=== PATIENT | female | born 1990 | race Caucasian/White ===

== ENCOUNTER 2019-02-15 07:10 | Inpatient (IN) ==
[2019-02-15] MEDS ORDERED: OXYTOCIN 30 UNITS/500 ML BAG IV PRN (09:16)
[2019-02-15] MEDS ORDERED: LACTATED RINGER'S 1,000 ML IV PRN (09:16)
[2019-02-15 09:35] LABS: Hemoglobin 11.1 g/dL (12.0-16.0); Mean Corpuscular Volume 91.9 fL (80-100); Mean Platelet Volume 11.1 fL (7.4-10.4); Platelet Count 154 K/uL (130-400); RDW Coefficient of Variation 13.3 % (11.5-14.5); RDW Standard Deviation 44.4 fL (36.4-46.3); Red Blood Count 3.59 M/uL (4.2-5.4); White Blood Count 12.03 K/uL (4.8-10.8)
[2019-02-15] MEDS ORDERED: miSOPROStol 25 MCG TAB PV SCH (09:45)
[2019-02-15 09:47] LABS: Mean Corpuscular Hgb Conc 33.6 g/dL (32-36)
--- NOTE | 2019-02-15 09:49 | Obstetrical Progress Note ---
Date of Service February 15, 2019 Subjective Admit Note 28 F P1011 at 40.3 weeks admitted for induction of labor for post dates . Her course has been unremarkable. GBS is negative. FHT Cat 1 with no contractions. Cervix 1/50/-3/vertex/posterior/firm/intact. EFW 7 lbs. Cytotec 25 mcg placed for cervical ripening to start induction. I discussed this with patient and spouse. Will monitor and then allow to ambulate. Results & Data Vital Signs (Past 12 Hours) Vital Signs Temp Pulse Resp BP 02/15/19 07:34 36.8 C 18 02/15/19 07:26 75 143/82 H
--- NOTE | 2019-02-15 19:44 | Obstetrical Progress Note ---
Date of Service February 15, 2019 Physical Exam Genitourinary: Manual OB Exam: + cervical dilation 4 cm, + cervical effacement 80%, + station high and + amniotic fluid clear OB Exam Monitor Tracing: + external FHT monitor used, + external uterine monitor used and + category I AROM with amni-hook clear fluid Results & Data Vital Signs (Past 12 Hours) Vital Signs Temp Pulse Resp BP 02/15/19 19:07 36.8 C 60 18 144/84 H 02/15/19 15:12 36.7 C 62 18 118/58 L 02/15/19 10:45 36.7 C 61 16 137/75
[2019-02-15] MEDS ORDERED: LACTATED RINGER'S 1,000 ML IV ONE (21:00)
--- NOTE | 2019-02-15 23:02 | Obstetrical Progress Note ---
Date of Service February 15, 2019 Physical Exam Genitourinary: Manual OB Exam: + cervical dilation 4 cm, + cervical effacement 80%, + station -2 and + amniotic fluid clear OB Exam Monitor Tracing: + external FHT monitor used, + external uterine monitor used, + category I and + normal FHT variability foebag ruptured with clear fluid Results & Data Vital Signs (Past 12 Hours) Vital Signs Temp Pulse Resp BP 02/15/19 22:51 36.8 C 62 18 140/86 02/15/19 20:15 36.8 C 18 02/15/19 19:07 36.8 C 60 18 144/84 H 02/15/19 15:12 36.7 C 62 18 118/58 L
[2019-02-16] MEDS ORDERED: ACETAMINOPHEN 325 MG TAB PO PRN (00:11)
[2019-02-16] MEDS ORDERED: HYDROCORTISONE ACETATE 25 MG SUPP PR PRN (00:11)
[2019-02-16] MEDS ORDERED: SUPERCREAM 0.870% 15 GM JAR EXT PRN (00:11)
[2019-02-16] MEDS ORDERED: OXYTOCIN 30 UNITS/500 ML BAG IV PRN (00:11)
[2019-02-16] MEDS ORDERED: MEASLES, MUMPS & RUBELLA VIRUS VIAL SQ ONE (00:11)
[2019-02-16] MEDS ORDERED: DIPHTHERIA/TETANUS/PERTUSSIS 0.5 ML SYR/VIAL IM ONE (00:11)
[2019-02-16] MEDS ORDERED: BISACODYL 10 MG SUPP PR PRN (00:11)
[2019-02-16] MEDS ORDERED: BENZOCAINE 20% AER SPR 82.5 GM CAN EXT PRN (00:11)
[2019-02-16] MEDS ORDERED: IBUPROFEN 600 MG TAB PO PRN (00:11)
--- NOTE | 2019-02-16 00:15 | Delivery Summary ---
Vaginal Delivery Summary Date of Service February 16, 2019 Vaginal Delivery Summary Delivery note live female over intact perineum [place] with delayed cord clamping. Apgars 8/9 weight pending. Cord blood obtained and spontaneous delivery of intact placenta. No tears. EBL 200 ml. Final sponge and instrument count are correct. Mom and baby stable.
[2019-02-16] MEDS: PRENATAL VITAMIN 1 TAB PO SCH (08:35)
[2019-02-16] MEDS: FERROUS SULFATE 325 MG TAB PO SCH (08:35)
--- NOTE | 2019-02-16 08:35 | Obstetrical Progress Note ---
Date of Service February 16, 2019 Assessment & Plan (1) normal course: PPD #1 pt doing well no complaints anticipate disch tomorrow Subjective Ambulation: ambulating normally Voiding: no voiding problems Passing Gas:: Yes Diet Tolerance:: regular diet Lochia:: Small Feeding Type:: breast feeding Review of Systems All systems reviewed & are unremarkable except as noted in HPI & below Physical Exam Constitutional WD/WN, vitals as above well developed and well nourished Eyes PERRL, conjunctivae normal, anicteric sclerae Neck trachea midline, no thyromegaly Respiratory normal respiratory effort, lungs clear to auscultation Auscultation: no crackles, no rales and no wheezes Cardiovascular RRR, no murmur, no edema Gastrointestinal (Abdomen) normal bowel sounds, soft, nontender, no hepatosplenomegaly Uterus is below umbilicus Musculoskeletal no cyanosis or clubbing, extremities motor strength 5/5 Skin no rashes, warm and dry Neurologic patellar DTR's 2+ bilat, sensation intact Psychiatric A+Ox3, euthymic affect Genitourinary normal external appearance Results & Data Vital Signs (Past 12 Hours) Vital Signs Temp Pulse Pulse Resp BP BP Pulse Ox 02/16/19 07:00 36.6 C 70 18 139/93 99 02/16/19 02:05 73 143/68 H 02/16/19 01:50 84 135/57 L 02/16/19 01:35 75 142/67 H 02/16/19 01:20 74 130/68 02/16/19 01:05 82 144/89 H 02/16/19 00:50 83 145/91 H 02/16/19 00:35 82 154/93 H 02/16/19 00:20 82 153/81 H 02/16/19 00:05 77 154/85 H 02/15/19 22:51 36.8 C 62 18 140/86
[2019-02-16] MEDS: DOCUSATE SODIUM 100 MG CAP PO SCH ×2 (08:36→20:35)
[2019-02-16] MEDS ORDERED: NON-FORMULARY MEDICATION (Prenatal Vit-Iron Fum-Folic Ac [Prenatal Vitamin] 1 TAB) PO SCH (09:00)
[2019-02-17 06:34] LABS: Hematocrit (blood only) 32.6 % (37-47); Mean Corpuscular Hgb Conc 33.7 g/dL (32-36); Mean Corpuscular Volume 92.6 fL (80-100); Mean Platelet Volume 10.6 fL (7.4-10.4); Platelet Count 124 K/uL (130-400); RDW Coefficient of Variation 13.6 % (11.5-14.5); RDW Standard Deviation 45.9 fL (36.4-46.3); Red Blood Count 3.52 M/uL (4.2-5.4); White Blood Count 9.81 K/uL (4.8-10.8)
--- NOTE | 2019-02-17 08:28 | Obstetrical Progress Note ---
Date of Service February 17, 2019 Subjective doing well plans on discharge Physical Exam Constitutional: WD/WN, vitals as above comfortable abdomen soft non-tender no edema for discharge Results & Data Vital Signs (Past 12 Hours) Vital Signs Temp Pulse Resp BP Pulse Ox 02/17/19 03:36 136/89 02/16/19 23:32 37.0 C 69 18 143/85 H 98 Laboratory Results all Laboratory Results - last 48 hr 02/15/19 02/17/19 09:24 06:21 WBC 12.03 H 9.81 RBC 3.59 L 3.52 L Hgb 11.1 L 11.0 L Hct 33.0 L 32.6 L MCV 91.9 92.6 MCH 30.9 31.3 MCHC 33.6 33.7 RDW Std Deviation 44.4 45.9 RDW Coeff of Wiley 13.3 13.6 Plt Count 154 124 L MPV 11.1 H 10.6 H
[2019-02-17] MEDS: FERROUS SULFATE 325 MG TAB PO SCH (08:29)
[2019-02-17] MEDS: PRENATAL VITAMIN 1 TAB PO SCH (08:29)
[2019-02-17] MEDS: DOCUSATE SODIUM 100 MG CAP PO SCH (08:29)
[2019-02-17] MEDS ORDERED: BISACODYL 5 MG TABEC PO SCH (20:00)
== END 2019-02-17 12:16 | disposition home or self-care (01) | DRG 807 ==
LOC: 4S1 07:10 → 4S2 02-16 02:30